=== PATIENT | male | born 1985 | race African-American/Black ===

== ENCOUNTER 2017-03-18 11:53 | Emergency (ER) | payer OTHER ==
[~2017-03-18] VITALS: Ht 193 cm; Wt 81.1 kg
[2017-03-18] MEDS ORDERED: NS 1,000 ML IV ONE ×2 (12:15→13:30)
[2017-03-18 12:56] LABS: BASO % 0.6 % (0.0-1.0); EOS # 0.1 K/mm3 (0.0-0.50); EOS % 1.7 % (0.0-3.0); LARGE UNSTAINED CELL # 0.1 K/mm3 (0.0-0.4); LARGE UNSTAINED CELL % 1.8 % (0.0-4.0); LYMPH # 1.8 K/mm3 (1.5-4.5); LYMPH % 43.2 % (24.0-44.0); MEAN CORPUSCULAR HEMOGLOBIN 32.8 pg (27.0-33.0); MEAN CORPUSCULAR VOLUME 96.4 fl (80.0-96.0); MONO # 0.2 K/mm3 (0.0-0.8); MONO % 5.4 % (0.0-5.0); NEUTROPHILS # 1.9 K/mm3 (1.8-7.7); NEUTROPHILS % 47.3 % (36.0-66.0); PLATELET COUNT, AUTOMATED 132 k/mm3 (150-450); RED CELL DISTRIBUTION WIDTH 12.6 % (11.5-14.5)
[2017-03-18 13:11] LABS: METHADONE URINE NEGATIVE (NEGATIVE)
[2017-03-18 13:21] LABS: ANION GAP 5 MEQ/L (8-16); BLOOD UREA NITROGEN 11 MG/DL (7-18); CALCIUM LEVEL 8.5 MG/DL (8.5-10.1); CARBON DIOXIDE LEVEL 28 MEQ/L (21-32); CHLORIDE LEVEL 103 MEQ/L (98-107); CREATININE FOR GFR 1.14 MG/DL (0.70-1.30); GLOMERULAR FILTRATION RATE > 60.0 (>60); GLUCOSE, FASTING 110 MG/DL (70-105); POTASSIUM SERUM 4.3 MEQ/L (3.5-5.1); SODIUM LEVEL 136 MEQ/L (136-145)
[2017-03-18 14:00] VITALS: BP 149/72
--- NOTE | 2017-03-18 19:38 | ECGEPIP ---
Stationary ECG Study [facility] - ED Test Date: 2017-03-18 Pat Name: ABIEL JORDAN Department: Room: - Gender: M [employer]: rn : 1985 Requested By: Leslee Barnett Order Number: [id number] Reading MD: Luca Nichole Measurements Intervals [place] Rate: 66 P: 61 AK: 335 QRS: 69 QRSD: 94 T: 48 QT: 390 QTc: 409 Interpretive Statements SINUS RHYTHM WITH FIRST DEGREE AV BLOCK BENIGN EARLY REPOLARIZATION MODERATE VOLTAGE CRITERIA FOR LVH, CONSIDER NORMAL VARIANT POSSIBLE SEPTAL MYOCARDIAL INFARCTION, OF INDETERMINATE AGE NO PRIORS Electronically Signed On 03-18-2017 19:38:03 EDT by Luca Nichole
== END 2017-03-18 15:52 | disposition home or self-care (01) ==
LOC: M ED 12:55
DX: R55 Syncope and collapse (principal)